=== PATIENT | male | born 1995 | race African-American/Black ===

== ENCOUNTER 2017-05-01 14:32 | Emergency (ER) | payer BC ==
[~2017-05-01] VITALS: Ht 172.7 cm; Wt 71.7 kg
[2017-05-01 15:26] VITALS: BP 114/60; Ht 172.7 cm; Wt 71.7 kg
== END 2017-05-01 18:36 | disposition home or self-care (01) ==
LOC: ED 14:32
DX: J06.9 Acute upper respiratory infection, unspecified (principal); F17.210 Nicotine dependence, cigarettes, uncomplicated